=== PATIENT | male | born 1965 | race Caucasian/White ===

== ENCOUNTER 2021-01-28 11:08 | Emergency (ER) | payer BC ==
[2021-01-28] MEDS ORDERED: Ibuprofen 200 MG TAB ONE (11:36)
== END 2021-01-28 11:59 | disposition home or self-care (01) ==
LOC: NAV ERS 11:08
DX: S93.412A Sprain of calcaneofibular ligament of left ankle, initial encounter (principal); I10 Essential (primary) hypertension; E78.00 Pure hypercholesterolemia, unspecified; Z79.899 Other long term (current) drug therapy; W22.8XXA Striking against or struck by other objects, initial encounter